=== PATIENT | male | born 1995 | race Caucasian/White ===

== ENCOUNTER 2018-02-21 13:07 | Emergency (ER) | payer OTHER ==
[2018-02-21 13:40] VITALS: BP 130/81; PULSE 89; RESP 18; TEMP 98.9
--- NOTE | 2018-02-21 14:09 | XR ---
EXAMINATION TYPE: XR knee complete LT DATE OF EXAM: 02/21/2018 CLINICAL HISTORY: Left knee pain after injury. TECHNIQUE: Three views of the left knee are obtained. COMPARISON: None. FINDINGS: There is no acute fracture/dislocation evident in left knee. The tri-compartment joint sp aces appear within normal limits. The overlying soft tissue appears unremarkable. IMPRESSION: There is no acute fracture or dislocation in the left knee.
--- NOTE | 2018-02-21 14:33 | ED ---
Lower Extremity Injury HPI - General Chief Complaint: Extremity Injury, Lower Stated Complaint: Knee Injury Time Seen by Provider: 02/21/18 13:44 Source: patient, RN notes reviewed Mode of arrival: wheelchair Limitations: no limitations - History of Present Illness Initial Comments: This is a 22-year-old male who presents to the emergency department with chief complaint of left knee injury. Patient states that at around noon his leg became caught between 2 hay sandra. He states that his left leg twisted and his left kneecap became displaced medially. He states he was able to pop it back in. He reports pain to the medial aspect of his left knee. He does report dislocation of the patella 2 years ago for which she followed up with Dr. Orlando at [facility]. Patient states that he is having difficulty bearing weight and ambulating due to the pain. He denies any other injuries or trauma. Denies recent fevers or chills, chest pain or shortness of breath, abdominal pain, nausea or vomiting, numbness or tingling. - Related Data Home Medications Medication Instructions Recorded Confirmed No Known Home Medications 12/03/14 02/21/18 Allergies Allergy/AdvReac Type Severity Reaction Status Date / Time No Known Allergies Allergy Verified 02/21/18 13:38 Review of Systems ROS Statement: Those systems with pertinent positive or pertinent negative responses have been documented in the HPI. ROS Other: All systems not noted in ROS Statement are negative. Past Medical History Past Medical History: No Reported History History of Any Multi-Drug Resistant Organisms: None Reported Additional Past Surgical History / Comment(s): left knee tumor removed Past Psychological History: No Psychological Hx Reported Smoking Status: Never smoker Past Alcohol Use History: None Reported Past Drug Use History: None Reported General Exam - General Exam Comments Initial Comments: General: Awake and alert, well-developed; in no apparent distress. Lying comfortably on ED stretcher. HEENT: Head atraumatic, normocephalic. Pupils are equal, round and reactive to light. Extraocular movements intact. Oropharynx moist without erythema or exudate. Neck: Supple. Normal ROM. Cardiovascular: Regular rate and rhythm. No murmurs, rubs or gallops. Chest symmetrical. Respiratory: Lungs clear to auscultation bilaterally. No wheezes, rales or rhonchi. Normal respiratory effort with no use of accessory muscles. Musculoskeletal: Patient has limited range of motion of the left knee with flexion due to pain. There is tenderness medial to the patella. Positive valgus stress. There is generalized soft tissue swelling. Sensation is intact. Pedal pulses are 2+ equal and palpable bilaterally. Skin: [place], warm and dry without rashes or lesions. Neurological: Alert and oriented x3. CN II-XII grossly intact. Speech is fluent and answers are appropriate. No focal neuro deficits. Psychiatric: Normal mood and affect. No overt signs of depression or anxiety noted. Limitations: no limitations Course Vital Signs 02/21/18 13:36 Temperature 98.9 F Pulse Rate 89 Respiratory 18 Rate Blood Pressure 130/81 O2 Sat by Pulse 98 Oximetry Medical Decision Making - Medical Decision Making This is a 22-year-old male who presents to the emergency department with chief complaint of left knee injury. Patient reports his knee twisting and patella dislocating medially. There is generalized soft tissue swelling and tenderness to the medial aspect of the left knee. Patient reports difficulty ambulating due to pain. X-ray was obtained which reveals no acute abnormalities. Patient is neurovascularly intact. Patient is provided with a knee immobilizer and recommended to follow-up with orthopedics. Recommended rest, ice, elevation and Tylenol or Motrin as needed. Patient will be provided a prescription for crutches. Vital signs are stable and he is in no acute distress. He will be discharged home at this time. He is in agreement with plan and voices understanding. All questions were answered. - Radiology Data Radiology results: report reviewed X-ray left knee impression: There is no acute fracture or dislocation of the left knee. Disposition Clinical Impression: Acute internal derangement of knee Disposition: HOME SELF-CARE Condition: Good Instructions: Knee Sprain (ED) Additional Instructions: As discussed, please follow-up with orthopedics for further evaluation. Please rest, ice, elevate and wear knee immobilizer while ambulating. Please follow up with primary care provider within 1-2 days. Return to emergency department if symptoms should worsen or any concerns arise. Is patient prescribed a controlled substance at d/c from ED?: No Referrals: None,Stated [Primary Care Provider] - 1-2 days Time of Disposition: 14:34
== END 2018-02-21 14:44 | disposition home or self-care (01) ==
LOC: EC 13:07
DX: M22.02 Recurrent dislocation of patella, left knee (principal); Z98.890 Other specified postprocedural states; X50.1XXA Overexertion from prolonged static or awkward postures, initial encounter; Y92.89 Other specified places as the place of occurrence of the external cause
CPT/HCPCS: 99283

== ENCOUNTER 2019-06-30 07:58 | Emergency (ER) | payer OTHER ==
[2019-06-30 08:04] VITALS: RESP 18; TEMP 98.2
[2019-06-30] MEDS ORDERED: LIDOCAINE 1% INJ 10MG/ML (20 ML MDV) SQ ONE (08:12)
--- NOTE | 2019-06-30 08:28 | ED ---
Fall HPI - General Chief Complaint: Fall Stated Complaint: fall Time Seen by Provider: 06/30/19 08:07 Source: patient Mode of arrival: ambulatory - History of Present Illness Initial Comments: 23-year-old male presenting with mother today for chief complaint of fall and ice. Patient states he fell forward ice striking his face. Patient states he did not lose consciousness however obtained a large laceration to his nose. Patient denies any bleeding disorders, injury to the upper or lower extremities patient denies any neck pain. Patient states that he does have a headache denies nausea vomiting visual changes. Patient states that his tetanus is up-to-date. Remaining review systems negative patient denies any other areas of injury. Patient was concerned laceration needed repair presents emergency department for further evaluation. - Related Data Previous Rx's Medication Instructions Recorded Amoxic-Pot Clav 875-125Mg 1 tab PO Q12HR 7 Days #14 tablet 06/30/19 [Augmentin 875-125] Allergies Allergy/AdvReac Type Severity Reaction Status Date / Time No Known Allergies Allergy Verified 06/30/19 08:02 Review of Systems ROS Statement: Those systems with pertinent positive or pertinent negative responses have been documented in the HPI. ROS Other: All systems not noted in ROS Statement are negative. Past Medical History Past Medical History: No Reported History History of Any Multi-Drug Resistant Organisms: None Reported Additional Past Surgical History / Comment(s): left knee tumor removed Past Psychological History: No Psychological Hx Reported Smoking Status: Never smoker Past Alcohol Use History: Occasional Past Drug Use History: Marijuana General Exam - General Exam Comments Initial Comments: General: The patient is awake and alert, in no distress Eye: +3 mm pupils are equal, round and reactive to light, extra-ocular movements are intact. No nystagmus. There is normal conjunctiva bilaterally. No signs of icterus. Ears, nose, mouth and throat: There are moist mucous membranes and no oral lesions. No [place] no urias sign. Neck: The neck is supple, there is no tenderness or JVD. Cardiovascular: There is a regular rate and rhythm. No murmur, rub or gallop is appreciated. Respiratory: Lungs are clear to auscultation, respirations are non-labored, breath sounds are equal. No wheezes, stridor, rales, or rhonchi. Gastrointestinal: Soft, non-distended, non-tender abdomen without masses or organomegaly noted. There is no rebound or guarding present. Musculoskeletal: Normal ROM, no tenderness. Strength 5/5. Sensation intact. Radial pulses equal bilaterally 2+. Neurological: A&O x 3. CN II-XII intact, There are no obvious motor or sensory deficits. Coordination appears grossly intact. Speech is normal. Skin: Skin is warm and dry and no rashes, irregular 2cm laceration of the skin covering nasal bridge, skin flap a distal aspect of laceration, dog ear at the superior aspect of laceration, bleeding controlled, no signs of foreign body, no exposure of nasal bone. No septal hematoma. Psychiatric: Cooperative, appropriate mood & affect, normal judgment. Limitations: no limitations Course Vital Signs 06/30/19 06/30/19 08:02 09:35 Temperature 98.2 F Pulse Rate 87 81 Respiratory 18 18 Rate Blood Pressure 132/81 114/77 O2 Sat by Pulse 99 Oximetry Procedures - Laceration Laceration #1 Consent Obtained: verbal consent Indication: laceration Site: face (nose) Size (cm): 2 Description: flap, irregular, clean Depth: simple, single layer Anesthetic Used: lidocaine 1% Anesthesia Technique: local infiltration Amount (mls): 2 Pre-repair: wound explored, irrigated extensively, deep structures intact Type of Sutures: nylon Size of Sutures: 6-0 Number of Sutures: 8 Technique: simple, interrupted Patient Tolerated Procedure: well, no complications Medical Decision Making - Medical Decision Making 23-year-old male presenting today for chief complaint of fall with nasal laceration. CT facial bones revealed and anterior nasal spine fracture. No pain of the cervical spine, no acute intracranial process on CT of brain, CT c-spine (-) no fracture. Patient was offered transfer for plastics, declined adamently, discussed risk of scarring-patient is aware. Nasal laceration irrigated, cleansed with iodine, laceration repairs, wound edges approximately well. Patient tetanus UTD. No focal neurological deficits. Patient laceration is not overlaying the fracture site. Discussed importance of ENT f/u. Timely removal of sutures.. Patient was discharged appearing well after discussing case with Dr. Hernández. Disposition Clinical Impression: Concussion, Fracture, nasal, Fall, Headache, Nasal laceration Narrative: Anterior Nasal spine fracture Disposition: HOME SELF-CARE Condition: Good Instructions (If sedation given, give patient instructions): Care For Your Stitches (ED), Nasal Fracture (ED), Concussion (ED), Facial Laceration (ED) Additional Instructions: Please use medication as discussed. Please follow-up within 5-6 days for suture removal, see ENT within next 2-4 days. No contact sports, activities with increased risk of head injury, exertional activities until patient is cleared by primary care provider per concussion protocol discussed. Please return to emergency room if the symptoms increase or worsen or for any other concerns, drainage, increasing pain, uncontrolled vomiting, worsening headache. Prescriptions: Amoxic-Pot Clav 875-125Mg [Augmentin 875-125] 1 tab PO Q12HR 7 Days #14 tablet Is patient prescribed a controlled substance at d/c from ED?: No Referrals: Ced Ramirez DO [Primary Care Provider] - 1-2 days Stephen Vincent DO [Doctor of Osteopathic Medicine] - 1-2 days Time of Disposition: 09:27
--- NOTE | 2019-06-30 08:36 | CT ---
EXAMINATION TYPE: CT brain cspine wo con DATE OF EXAM: 06/30/2019 COMPARISON: NONE HISTORY: Slip and fall, open wound on nose CT DLP: 1233.4 (brain, facial and cervical) mGycm Automated exposure control for dose reduction was used. TECHNIQUE: CT scan of the head and cervical spine are performed without contrast. FINDINGS: BRAIN: Central structures are midline. There is no evidence of hydrocephalus. No acute focal lesion, mass effect or midline shift is seen. I do not see evidence of intracranial blood. Visualized portions of the paranasal sinuses and mastoids are clear. The bony calvarium is intact. IMPRESSION: NORMAL CT SCAN OF THE BRAIN. CERVICAL SPINE: Visualized portions of the lungs are clear. Prevertebral soft tissues are normal. There is a mild reversal of the normal cervical lordosis which is replaced by mild kyphosis. Alignmen t is normal. Atlantoaxial relationships are normal. There is no significant degenerative change. No fractures are seen. No discal protrusions are identif ied. IMPRESSION: NO ACUTE OSSEOUS LESION.
--- NOTE | 2019-06-30 08:43 | CT ---
EXAMINATION TYPE: CT facial bones wo con DATE OF EXAM: 06/30/2019 COMPARISON: None. HISTORY: Slip and fall, open wound on nose CT DLP: 1233.4 (brain, facial and cervical) mGycm Automated exposure control for dose reduction was used. TECHNIQUE: CT scan of the sinuses is performed without contrast, axial images are obtained, coronal r eformatted images are also reviewed. FINDINGS: There is soft tissue swelling about the nose. There is a minimally displaced fracture of th e superior nasal spine. Both zygomatic arches are intact. The pterygoid plates are intact. The [place] of the orbits and maxill justin sinuses are intact. The orbits are unremarkable. IMPRESSION: Minimally displaced fracture the superior nasal spine. Code A: Initial encounter for closed fracture.
[2019-06-30] MEDS ORDERED: HYDROcodone/APAP 5-325MG 1 EACH TAB PO STA (08:57)
[2019-06-30 09:38] VITALS: BP 114/77; PULSE 81
== END 2019-06-30 09:39 | disposition home or self-care (01) ==
LOC: EC 07:58
DX: S02.2XXB Fracture of nasal bones, initial encounter for open fracture (principal); S06.0X0A Concussion without loss of consciousness, initial encounter; W00.0XXA Fall on same level due to ice and snow, initial encounter; Y92.009 Unspecified place in unspecified non-institutional (private) residence as the place of occurrence of the external cause
CPT/HCPCS: 72125; 70486; 70450; 12011; 99284; J2001

== ENCOUNTER 2020-04-04 10:07 | Emergency (ER) | payer OTHER ==
[2020-04-04] MEDS ORDERED: ONDANSETRON 4 MG/2 ML VIAL IVP STA (10:56)
[2020-04-04] MEDS ORDERED: MORPHINE SULFATE 2 MG/ML SYRINGE IVP PRN (10:56)
[2020-04-04] MEDS ORDERED: SODIUM CHLORIDE 0.9% 1,000 ML IV ONE (10:56)
[2020-04-04] MEDS ORDERED: SODIUM CHLORIDE 0.9% 1,000 ML IV SCH (11:00)
[2020-04-04 11:19] LABS: Basophils # (A) 0.1 k/uL (0-0.2); Basophils % (A) 2 %; Eosinophils # (A) 0.1 k/uL (0-0.7); Eosinophils % (A) 2 %; HCT 49.8 % (39.0-53.0); Lymphocytes # (A) 1.2 k/uL (1.0-4.8); Lymphocytes % (A) 27 %; MCH 30.3 pg (25.0-35.0); MCHC 34.2 g/dL (31.0-37.0); MCV 88.5 fL (80.0-100.0); Mean Platelet Volume 7.2; Monocytes # (A) 0.3 k/uL (0-1.0); Monocytes % (A) 6 %; Neutrophils # (A) 2.9 k/uL (1.3-7.7); Neutrophils % (A) 62 %; Platelet Count 265 k/uL (150-450); RBC 5.62 m/uL (4.30-5.90); RDW 12.3 % (11.5-15.5); WBC 4.6 k/uL (3.8-10.6)
[2020-04-04 11:26] LABS: ALT 35 U/L (4-49); AST 32 U/L (17-59); African American GFR (CKD) >90 (>60 ml/min/1.73 sqM); Albumin 4.9 g/dL (3.5-5.0); Alkaline Phosphatase 73 U/L (38-126); Amylase 44 U/L (30-110); Anion Gap 9 mmol/L; Blood Urea Nitrogen 16 mg/dL (9-20); Calcium 9.8 mg/dL (8.4-10.2); Carbon Dioxide 25 mmol/L (22-30); Chloride 104 mmol/L (98-107); Glucose 104 mg/dL (74-99); Lipase 55 U/L (23-300); Non-African American GFR(CKD) >90 (>60 ml/min/1.73 sqM); Potassium 4.3 mmol/L (3.5-5.1); Sodium 138 mmol/L (137-145); Total Bilirubin 1.1 mg/dL (0.2-1.3); Total Protein 7.8 g/dL (6.3-8.2)
[2020-04-04 11:41] LABS: Appearance,Urine Clear (Clear); Bilirubin,Urine Negative (Negative); Blood,Urine Negative (Negative); Color,Urine Yellow; Glucose,Urine (UA) Negative (Negative); Ketones,Urine Negative (Negative); Leukocyte Esterase,Urine Negative (Negative); Nitrite,Urine Negative (Negative); Protein,Urine Negative (Negative); Urobilinogen,Urine <2.0 mg/dL (<2.0)
--- NOTE | 2020-04-04 11:58 | CT ---
EXAMINATION TYPE: CT abdomen pelvis w con DATE OF EXAM: 04/04/2020 COMPARISON: None HISTORY: RLQ appendicitis suspected CT DLP: 1295.2 mGycm CONTRAST: CT scan of the abdomen and pelvis is performed without Oral Contrast and with IV Contrast, patient in jected with 100 ml mL of Isovue 300. FINDINGS: LUNG BASES-: No visible nodule. No infiltrate. LIVER/GB: No calcified gallstones. No space occupying hepatic lesion. Biliary tree is of normal ca liber. PANCREAS: No inflammation. No distinct mass. SPLEEN: No splenic enlargement. No lesion seen. ADRENALS: No nodule. No thickening. KIDNEYS/BLADDER: No hydronephrosis. No nephrolithiasis. No distinct renal mass. Urinary bladder g rossly unremarkable. BOWEL: Normal appendix. Mild distention of small bowel with wall thickening may reflect enteritis. GENITAL ORGANS: No gross abnormality. LYMPH NODES: No greater than 1cm abdominal or pelvic lymph nodes are appreciated. AORTA: No significant abnormality. OSSEOUS STRUCTURES: No significant abnormality is seen. OTHER: No significant additional abnormality is seen. IMPRESSION: 1. Mild distention of small bowel with wall thickening may reflect enteritis. 2 normal appendix
--- NOTE | 2020-04-04 12:04 | ED ---
General Adult HPI - General Chief complaint: Abdominal Pain Stated complaint: abd pain Time Seen by Provider: 04/04/20 10:42 Source: patient Mode of arrival: ambulatory Limitations: no limitations - History of Present Illness Initial comments: 24yo male presenting for cc of RLQ Pain, diarrhea. states he has had diarrhea x 3 days and noted some RLQ pain. Concerned with family history of appendicitis that this may be what it was. denies vomiting, admits to nausea, dneies fevers. Patient appears nontoxic on arrival in no acute distress. Denies PMH. - Related Data Previous Rx's Medication Instructions Recorded Amoxic-Pot Clav 875-125Mg 1 tab PO Q12HR 7 Days #14 tablet 06/30/19 [Augmentin 875-125] Allergies Allergy/AdvReac Type Severity Reaction Status Date / Time No Known Allergies Allergy Verified 04/04/20 10:33 Review of Systems ROS Statement: Those systems with pertinent positive or pertinent negative responses have been documented in the HPI. ROS Other: All systems not noted in ROS Statement are negative. Past Medical History Past Medical History: No Reported History History of Any Multi-Drug Resistant Organisms: None Reported Additional Past Surgical History / Comment(s): left knee tumor removed Past Psychological History: No Psychological Hx Reported Smoking Status: Never smoker Past Alcohol Use History: Occasional Past Drug Use History: Marijuana General Exam - General Exam Comments Initial Comments: General: The patient is awake and alert, in no distress Eye: +3 mm pupils are equal, round and reactive to light, extra-ocular movements are intact. No nystagmus. There is normal conjunctiva bilaterally. No signs of icterus. Cardiovascular: There is a regular rate and rhythm. No murmur, rub or gallop is appreciated. Respiratory: Lungs are clear to auscultation, respirations are non-labored, breath sounds are equal. No wheezes, stridor, rales, or rhonchi. Gastrointestinal: Soft, non-distended, lower abdominal tenderness including the RLQ pain, abdomen without masses or organomegaly noted. There is no rebound or guarding present. Musculoskeletal: Normal ROM, no tenderness. Strength 5/5. Sensation intact. Radial pulses equal bilaterally 2+. Neurological: A&O x 3. CN II-XII intact grossly, There are no obvious motor or sensory deficits. Coordination appears grossly intact. Speech is normal. Skin: Skin is warm and dry and no rashes or lesions are noted. Psychiatric: Cooperative, appropriate mood & affect, normal judgment. Limitations: no limitations Course Vital Signs 04/04/20 10:32 Temperature 99.2 F Pulse Rate 94 Respiratory 18 Rate Blood Pressure 144/85 O2 Sat by Pulse 98 Oximetry Medical Decision Making - Medical Decision Making Enteritis on CT. No appendicitis. Patient labs no leukocytosis. Patient VS within acceptable limits. Pt will be discharged with PCP f/u. Discussed importance of return if there is increasing pain, pt verbalized understanding. Dr. Hernández agree - Lab Data Result diagrams: 04/04/20 10:58 04/04/20 10:58 Lab Results 04/04/20 04/04/20 04/04/20 Range/Units 10:58 10:58 10:58 WBC 4.6 (3.8-10.6) k/uL RBC 5.62 (4.30-5.90) m/uL Hgb 17.0 (13.0-17.5) gm/dL Hct 49.8 (39.0-53.0) % MCV 88.5 (80.0-100.0) fL MCH 30.3 (25.0-35.0) pg MCHC 34.2 (31.0-37.0) g/dL RDW 12.3 (11.5-15.5) % Plt Count 265 (150-450) k/uL MPV 7.2 Neutrophils % 62 % Lymphocytes % 27 % Monocytes % 6 % Eosinophils % 2 % Basophils % 2 % Neutrophils # 2.9 (1.3-7.7) k/uL Lymphocytes # 1.2 (1.0-4.8) k/uL Monocytes # 0.3 (0-1.0) k/uL Eosinophils # 0.1 (0-0.7) k/uL Basophils # 0.1 (0-0.2) k/uL Sodium 138 (137-145) mmol/L Potassium 4.3 (3.5-5.1) mmol/L Chloride 104 (98-107) mmol/L Carbon Dioxide 25 (22-30) mmol/L Anion Gap 9 mmol/L BUN 16 (9-20) mg/dL Creatinine 0.88 (0.66-1.25) mg/dL Est GFR (CKD-EPI)AfAm >90 (>60 ml/min/1.73 sqM) Est GFR (CKD-EPI)NonAf >90 (>60 ml/min/1.73 sqM) Glucose 104 H (74-99) mg/dL Plasma Lactic Acid Brian (0.7-2.0) mmol/L Calcium 9.8 (8.4-10.2) mg/dL Total Bilirubin 1.1 (0.2-1.3) mg/dL AST 32 (17-59) U/L ALT 35 (4-49) U/L Alkaline Phosphatase 73 (38-126) U/L Total Protein 7.8 (6.3-8.2) g/dL Albumin 4.9 (3.5-5.0) g/dL Amylase 44 (30-110) U/L Lipase 55 (23-300) U/L Urine Color Yellow Urine Appearance Clear (Clear) Urine pH 7.0 (5.0-8.0) Ur Specific [place] 1.020 (1.001-1.035) Urine Protein Negative (Negative) Urine Glucose (UA) Negative (Negative) Urine Ketones Negative (Negative) Urine Blood Negative (Negative) Urine Nitrite Negative (Negative) Urine Bilirubin Negative (Negative) Urine Urobilinogen <2.0 (<2.0) mg/dL Ur Leukocyte Esterase Negative (Negative) 04/04/20 Range/Units 10:58 WBC (3.8-10.6) k/uL RBC (4.30-5.90) m/uL Hgb (13.0-17.5) gm/dL Hct (39.0-53.0) % MCV (80.0-100.0) fL MCH (25.0-35.0) pg MCHC (31.0-37.0) g/dL RDW (11.5-15.5) % Plt Count (150-450) k/uL MPV Neutrophils % % Lymphocytes % % Monocytes % % Eosinophils % % Basophils % % Neutrophils # (1.3-7.7) k/uL Lymphocytes # (1.0-4.8) k/uL Monocytes # (0-1.0) k/uL Eosinophils # (0-0.7) k/uL Basophils # (0-0.2) k/uL Sodium (137-145) mmol/L Potassium (3.5-5.1) mmol/L Chloride (98-107) mmol/L Carbon Dioxide (22-30) mmol/L Anion Gap mmol/L BUN (9-20) mg/dL Creatinine (0.66-1.25) mg/dL Est GFR (CKD-EPI)AfAm (>60 ml/min/1.73 sqM) Est GFR (CKD-EPI)NonAf (>60 ml/min/1.73 sqM) Glucose (74-99) mg/dL Plasma Lactic Acid Brian 1.3 (0.7-2.0) mmol/L Calcium (8.4-10.2) mg/dL Total Bilirubin (0.2-1.3) mg/dL AST (17-59) U/L ALT (4-49) U/L Alkaline Phosphatase (38-126) U/L Total Protein (6.3-8.2) g/dL Albumin (3.5-5.0) g/dL Amylase (30-110) U/L Lipase (23-300) U/L Urine Color Urine Appearance (Clear) Urine pH (5.0-8.0) Ur Specific [place] (1.001-1.035) Urine Protein (Negative) Urine Glucose (UA) (Negative) Urine Ketones (Negative) Urine Blood (Negative) Urine Nitrite (Negative) Urine Bilirubin (Negative) Urine Urobilinogen (<2.0) mg/dL Ur Leukocyte Esterase (Negative) Disposition Clinical Impression: Enteritis, Diarrhea Disposition: HOME SELF-CARE Condition: Good Instructions (If sedation given, give patient instructions): Enteritis (ED) Additional Instructions: Please use medication as discussed. Please follow-up with family doctor in the next 2 days, if symptoms are worsening please return to the ER. Please return to emergency room if the symptoms increase or worsen or for any other concerns. Is patient prescribed a controlled substance at d/c from ED?: No Referrals: Ced Ramirez DO [Primary Care Provider] - 1-2 days Time of Disposition: 12:03
[2020-04-04 12:16] VITALS: BP 138/82; PULSE 78; RESP 16; TEMP 99
== END 2020-04-04 12:14 | disposition home or self-care (01) ==
LOC: EC 10:07
DX: K52.9 Noninfective gastroenteritis and colitis, unspecified (principal)
CPT/HCPCS: 36415; 80053; 82150; 83605; 83690; 85025; 81003; 87040; 74177; 99284; 96374; 96375; 96361; J2405; J2270; Q9967